=== PATIENT | male | born 1990 ===

== ENCOUNTER 2021-03-01 04:26 | Emergency (ER) | payer OTHER ==
[2021-03-01 05:23] LABS: Basophils % (Auto) 0.5 % (0.0-1.8); Eosinophils % (Auto) 0.5 % (0.0-4.3); Hematocrit 43.6 % (35.5-45.6); Hemoglobin 14.6 gm/dl (11.8-15.2); Lymphocytes # (Auto) 1.5 K/mm3 (1.2-5.4); Lymphocytes % (Auto) 18.5 % (13.4-35.0); Mean Corpuscular HGB Conc 34 % (32-34); Mean Corpuscular Volume 94 fl (84-94); Monocytes # (Auto) 0.8 K/mm3 (0.0-0.8); Monocytes % (Auto) 10.3 % (0.0-7.3); Platelet Count 263 K/mm3 (140-440); Red Blood Count 4.64 M/mm3 (3.65-5.03); Red Cell Distribution Width 14.7 % (13.2-15.2)
[2021-03-01 05:34] LABS: INR 0.97 (0.87-1.13)
[2021-03-01 05:35] LABS: Partial Thromboplastin Time 28.8 Sec. (24.2-36.6)
[2021-03-01 05:53] LABS: Alanine Aminotransferase 76 units/L (7-56); Albumin 4.4 g/dL (3.9-5); Blood Urea Nitrogen 6 mg/dL (9-20); Calcium 8.5 mg/dL (8.4-10.2); Hemolysis Index 5
[2021-03-01 05:55] LABS: BUN/Creatinine Ratio 12
--- NOTE | 2021-03-01 06:05 | Cat Scan Report ---
CT HEAD WITHOUT CONTRAST INDICATION: Altered Mental Status TECHNIQUE: All CT scans at this location are performed using CT dose reduction for ALARA by means of automated exposure control. COMPARISON: None available. FINDINGS: BRAIN: No hemorrhage or mass effect are seen. No evidence of acute infarction is noted. ORBITS: Normal as visualized. SOFT TISSUES OF HEAD: Normal. CALVARIUM: Normal. VISUALIZED PARANASAL SINUSES AND MASTOID AIR CELLS: Clear. ADDITIONAL FINDINGS: None. IMPRESSION: No acute intracranial abnormality. Signer Name: Juancarlos Guo MD Signed: 03/01/2021 6:01 AM Workstation Name: [id number]
[2021-03-01] MEDS ORDERED: SODIUM CHLORIDE 0.9% 1000 ML 1,000 ML IV ONE ×2 (06:18)
--- NOTE | 2021-03-01 06:30 | Emergency Department Report ---
ED Alcohol HPI - General Chief Complaint: Altered Mental Status Stated Complaint: UNRESPONSIVE Time Seen by Provider: 03/01/21 06:11 Source: EMS Mode of arrival: Stretcher Limitations: Altered Mental Status - History of Present Illness Initial Comments: cc: "blood alcohol .33 at [facility]" HPI: This is a 31 yo male with hx of alcohol dependence who presents from [facility] for altered mental status and elevated blood alcohol level. Patient is not responsive. According to triage documentation, patient may have had a seizure. Patient given 1 mg of Ativan at the facility. Mental health home care assistant spoke with outside sales representative at [facility]. This gentleman was accepted to [facility] from outside facility. At outside facility his blood alcohol level was 0.37. He was sent to the emergency department after he fell in the lobby. After 6 hours observation in the emergency department, patient is now awake and conversant. He denies any pain. He states that he just wants to sleep. 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 He was transferred from [facility] to [facility]. Complaint: alcohol intoxication Last Drink: unknown Chronic Alcohol Use: Yes Recent Trauma: No - Related Data Allergies Allergy/AdvReac Type Severity Reaction Status Date / Time No Known Allergies Allergy Verified 03/01/21 04:53 ED Review of Systems ROS: Stated complaint: UNRESPONSIVE Other details as noted in HPI Comment: All other systems reviewed and negative Constitutional: denies: chills, fever Cardiovascular: denies: chest pain Gastrointestinal: denies: abdominal pain, nausea, vomiting ED Past Medical Hx - Past Medical History Previous Medical History?: Yes Additional medical history: ETOH abuse - Surgical History Past Surgical History?: No - Social History Smoking Status: Unknown if ever smoked Substance Use Type: Alcohol ED Physical Exam - General Limitations: Other General appearance: obtunded, other (mouth open no reponsse no voice minimal response to sternal rub) - Head Head exam: Present: atraumatic, normocephalic - Eye Eye exam: Present: normal appearance, PERRL. Absent: scleral icterus, conjunctival injection - ENT ENT exam: Present: mucous membranes moist - Neck Neck exam: Present: normal inspection, full ROM - Respiratory Respiratory exam: Present: normal lung sounds bilaterally. Absent: respiratory distress, wheezes, rales, rhonchi - Cardiovascular Cardiovascular Exam: Present: regular rate, normal rhythm, normal heart sounds. Absent: systolic murmur, diastolic murmur, rubs, gallop - GI/Abdominal GI/Abdominal exam: Present: soft, normal bowel sounds. Absent: distended, tenderness, guarding, rebound - Rectal Rectal exam: Present: deferred - Extremities Exam Extremities exam: Present: normal inspection - Neurological Exam Neurological exam: Present: altered - Skin Skin exam: Present: warm, dry, intact, normal color. Absent: rash ED Course Vital Signs 03/01/21 03/01/21 03/01/21 04:40 04:49 05:00 Temperature 97.5 F L Pulse Rate 95 H 76 95 H Respiratory 20 Rate Blood Pressure 128/83 128/83 O2 Sat by Pulse 95 95 96 Oximetry 03/01/21 03/01/21 03/01/21 05:16 05:30 05:31 Temperature Pulse Rate 100 H 99 H Respiratory 18 Rate Blood Pressure 127/85 127/85 O2 Sat by Pulse 98 Oximetry 03/01/21 03/01/21 03/01/21 05:52 06:00 06:16 Temperature Pulse Rate 86 83 86 Respiratory 17 18 19 Rate Blood Pressure 132/67 O2 Sat by Pulse 95 96 96 Oximetry 03/01/21 03/01/21 03/01/21 06:30 06:46 07:00 Temperature Pulse Rate 82 86 85 Respiratory 17 18 19 Rate Blood Pressure 132/67 125/83 128/59 O2 Sat by Pulse 94 91 93 Oximetry 03/01/21 03/01/21 03/01/21 07:30 10:01 10:30 Temperature 97.6 F Pulse Rate 107 H 82 Respiratory 17 16 Rate Blood Pressure 132/67 126/82 O2 Sat by Pulse 95 95 Oximetry - Reevaluation(s) Reevaluation #1: 03/01/21 09:01 I reassessed patient. He now opens his eyes and mumbles to sternal rub. Still extremely lethargic. I spoke with mental health home care assistant in order to expedite disposition back to [facility] once he is medically clear. 03/01/21 09:01 ED Medical Decision Making - Lab Data Result diagrams: 03/01/21 04:40 03/01/21 05:16 Laboratory Results - last 24 hr 03/01/21 03/01/21 03/01/21 04:40 04:40 05:16 WBC 7.8 RBC 4.64 Hgb 14.6 Hct 43.6 MCV 94 MCH 32 MCHC 34 RDW 14.7 Plt Count 263 Lymph % (Auto) 18.5 Oliver % (Auto) 10.3 H Eos % (Auto) 0.5 Baso % (Auto) 0.5 Lymph # (Auto) 1.5 Oliver # (Auto) 0.8 Eos # (Auto) 0.0 Baso # (Auto) 0.0 Seg Neutrophils % 70.2 H Seg Neutrophils # 5.5 PT 13.4 INR 0.97 APTT 28.8 Sodium 140 Potassium 3.4 L Chloride 100.1 Carbon Dioxide 27 Anion Gap 16 BUN 6 L Creatinine 0.5 L Estimated GFR > 60 BUN/Creatinine Ratio 12 Glucose 130 H Lactic Acid Calcium 8.5 Total Bilirubin 1.10 AST 146 H ALT 76 H Alkaline Phosphatase 67 Troponin T < 0.010 Total Protein 6.9 Albumin 4.4 Albumin/Globulin Ratio 1.8 Urine Color Urine Turbidity Urine pH Ur Specific [place] Urine Protein Urine Glucose (UA) Urine Ketones Urine Nitrite Ur Reducing Substances Urine Bilirubin Urine Ictotest Urine Urobilinogen Ur Leukocyte Esterase Urine WBC (Auto) Urine RBC (Auto) U Epithel Cells (Auto) Urine Opiates Screen Urine Methadone Screen Acetaminophen Ur Barbiturates Screen Ur Phencyclidine Scrn Ur Amphetamines Screen U Benzodiazepines Scrn Urine Cocaine Screen U Marijuana (THC) Screen Drugs of Abuse Note Plasma/Serum Alcohol 03/01/21 03/01/21 03/01/21 05:16 05:16 05:16 WBC RBC Hgb Hct MCV MCH MCHC RDW Plt Count Lymph % (Auto) Oliver % (Auto) Eos % (Auto) Baso % (Auto) Lymph # (Auto) Oliver # (Auto) Eos # (Auto) Baso # (Auto) Seg Neutrophils % Seg Neutrophils # PT INR APTT Sodium Potassium Chloride Carbon Dioxide Anion Gap BUN Creatinine Estimated GFR BUN/Creatinine Ratio Glucose Lactic Acid 3.30 H* Calcium Total Bilirubin AST ALT Alkaline Phosphatase Troponin T Total Protein Albumin Albumin/Globulin Ratio Urine Color Urine Turbidity Urine pH Ur Specific [place] Urine Protein Urine Glucose (UA) Urine Ketones Urine Nitrite Ur Reducing Substances Urine Bilirubin Urine Ictotest Urine Urobilinogen Ur Leukocyte Esterase Urine WBC (Auto) Urine RBC (Auto) U Epithel Cells (Auto) Urine Opiates Screen Urine Methadone Screen Acetaminophen 5.0 L Ur Barbiturates Screen Ur Phencyclidine Scrn Ur Amphetamines Screen U Benzodiazepines Scrn Urine Cocaine Screen U Marijuana (THC) Screen Drugs of Abuse Note Plasma/Serum Alcohol 0.48 H 03/01/21 03/01/21 06:07 06:07 WBC RBC Hgb Hct MCV MCH MCHC RDW Plt Count Lymph % (Auto) Oliver % (Auto) Eos % (Auto) Baso % (Auto) Lymph # (Auto) Oliver # (Auto) Eos # (Auto) Baso # (Auto) Seg Neutrophils % Seg Neutrophils # PT INR APTT Sodium Potassium Chloride Carbon Dioxide Anion Gap BUN Creatinine Estimated GFR BUN/Creatinine Ratio Glucose Lactic Acid Calcium Total Bilirubin AST ALT Alkaline Phosphatase Troponin T Total Protein Albumin Albumin/Globulin Ratio Urine Color Yellow Urine Turbidity Clear Urine pH 7.0 Ur Specific [place] 1.005 Urine Protein <15 mg/dl Urine Glucose (UA) Negative Urine Ketones Negative Urine Nitrite Negative Ur Reducing Substances Not Reportable Urine Bilirubin Negative Urine Ictotest Not Reportable Urine Urobilinogen 0.0 Ur Leukocyte Esterase Negative Urine WBC (Auto) 0.0 Urine RBC (Auto) 1.0 U Epithel Cells (Auto) < 1.0 Urine Opiates Screen Presumptive negative Urine Methadone Screen Presumptive negative Acetaminophen Ur Barbiturates Screen Presumptive positive Ur Phencyclidine Scrn Presumptive negative Ur Amphetamines Screen Presumptive negative U Benzodiazepines Scrn Presumptive negative Urine Cocaine Screen Presumptive negative U Marijuana (THC) Screen Presumptive negative Drugs of Abuse Note Disclamer Plasma/Serum Alcohol - Radiology Data Radiology results: report reviewed [facility] [address] [place] [address] Cat Scan Report Signed Patient: JAMI MARROQUIN MR#: [id number] : 1990 Acct:[id number] Age/Sex: 31 / M ADM Date: 03/01/21 Loc: ED Attending Dr: Ordering Physician: ADITYA RAMOS MD Date of Service: 03/01/21 Procedure(s): CT head/brain wo con Accession Number(s): [id number] cc: ADITYA RAMOS MD CT HEAD WITHOUT CONTRAST INDICATION: Altered Mental Status TECHNIQUE: All CT scans at this location are performed using CT dose reduction for ALARA by means of automated exposure control. COMPARISON: None available. FINDINGS: BRAIN: No hemorrhage or mass effect are seen. No evidence of acute infarction is noted. ORBITS: Normal as visualized. SOFT TISSUES OF HEAD: Normal. CALVARIUM: Normal. VISUALIZED PARANASAL SINUSES AND MASTOID AIR CELLS: Clear. ADDITIONAL FINDINGS: None. IMPRESSION: No acute intracranial abnormality. Signer Name: Juancarlos Guo MD Signed: 03/01/2021 6:01 AM Workstation Name: [id number] Transcribed By: OLMAN Dictated By: Juancarlos Guo MD Electronically Authenticated By: Juancarlos Guo MD Signed Date/Time: 03/01/21600 DD/ - Medical Decision Making Acute alcohol intoxication, alcoholic,: After 6 hours of observation patient is now awake conversant. 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 CBC within normal limits. Mild hypokalemia. AST ALT reflective of alcoholic transaminitis. Nonspecific lactic acidosis do not suspect sepsis. Blood a lcohol level 0.48 UDS positive for barbiturates Patient is appropriate at this point for [facility]. I am concerned for alcohol withdrawal. He was given IV 2 mg Ativan. I have asked nurse in charge nurse to arrange transfer back to [facility]. Critical Care Time: Yes Critical care time in (mins) excluding proc time.: 40 Critical care attestation.: If time is entered above; I have spent that time in minutes in the direct care of this critically ill patient, excluding procedure time. Critical Care Time: 40 minutes of critical care time excluding procedures were used in the care of the patient. I was concerned for impending airway failure possible aspiration. I discussed treatment plan with the nursing team members. I reviewed electronic record. Patient required multiple interventions and reassessments. ED Disposition Clinical Impression: Alcohol intoxication with blood alcohol level greater than 0.3, Alcoholic coma Disposition: [facility] Is pt being admited?: No Does the pt Need Aspirin: No Condition: Stable
[2021-03-01 06:31] LABS: Amphetamine Screen,Urine PRESUMPTIVE NEGATIVE; Benzodiazepines Screen,Urine PRESUMPTIVE NEGATIVE; Cannabinoid Screen,Urine PRESUMPTIVE NEGATIVE; Cocaine Screen,Urine PRESUMPTIVE NEGATIVE; Methadone Screen,Urine PRESUMPTIVE NEGATIVE; Opiate Screen,Urine PRESUMPTIVE NEGATIVE
[2021-03-01 06:51] LABS: Bilirubin,Urine Negative (Negative); Color,Urine Yellow (Yellow); Protein,Urine <15 mg/dL mg/dL (Negative)
[2021-03-01] MEDS ORDERED: LORazepam 2 MG/ML VIAL IV ONE ×4 (12:22→20:40)
--- NOTE | 2021-03-01 19:05 | Emergency Department Report ---
Blank Doc - Documentation Documentation: Blood alcohol was sufficiently low to return the patient to [facility].
[2021-03-01] MEDS ORDERED: LORazepam 2 MG/ML VIAL IV PRN ×3 (23:46)
[2021-03-02 02:33] VITALS: BP 128/76
== END 2021-03-02 02:06 ==
LOC: ED 04:26
DX: F10.129 Alcohol abuse with intoxication, unspecified (principal); K70.41 Alcoholic hepatic failure with coma; Y90.8 Blood alcohol level of 240 mg/100 ml or more
CPT/HCPCS: 36415; 70450; 80053; 80307; 80320; 81001; 82140; 84484; 85025; 85610; 85730; 96374; 96376; 99291; G0480; J2060; J7030